=== PATIENT | male | born 1985 | race Caucasian/White ===

== ENCOUNTER 2018-03-07 17:00 | Emergency (ER) | payer SELFPAY ==
[2018-03-07 17:04] VITALS: BMI 37.6
[2018-03-07] MEDS ORDERED: ZOFRAN INJ 4 MG VIAL IVP ONE (17:21)
[2018-03-07] MEDS ORDERED: ZOFRAN INJ 4 MG VIAL ONE (17:22)
[2018-03-07] MEDS ORDERED: NS 1000 ML 1,000 ML ONE (17:23)
[2018-03-07] MEDS ORDERED: NS 1000 ML 1,000 ML IV ONE (17:27)
--- NOTE | 2018-03-07 17:33 | DR.GENAD ---
HPI - PCP Primary Care Physician: NFD - Complaint/Symptoms Chief Complaint:: PT. C/O LEFT FLANK PAIN AND SEVERE VOMITING. - Nurses notes reviewed Nurses Notes Review: Yes - Source History Provided: Patient - Mode of Arrival Mode of Arrival: Ambulatory - Timing Onset of Chief Complaint: 03/07/18 PMH - PMH Past Medical History: Yes Past Medical History: Kidney Stones Past Surgical History: No Surgical History: No History - Family History History of Family Medical Conditions: Yes Family Medical History: Heart Failure - Social History Does patient currently use any type of tobacco product: Yes Have you used tobacco products in the last 12 months: Yes Type of Tobacco Use: Cigarettes Does any household member use tobacco: Yes Alcohol Use: Occasionally Do you use any recreational Drugs:: No Lives With: Significant Other Lives Where: Home - infectious screening In the last 2 months have you had wt loss of >10#?: NO Have you had fever, night sweats or hemotysis?: No Have you traveled outside the country in the last 6 months?: No Isolation: Standard ROS - Review of Systems Constitutional: No Symptoms Reported Eyes: No Symptoms Reported ENTM: No Symptoms Reported Respiratoy: No Symptoms Reported Cardiovascular: No Symptoms Reported Gastrointestinal/Abdominal: Nausea, Vomiting Genitourinary: Other (lt.flank pain) Neurological: No Symptoms Reported Musculoskeletal: No Symptoms Reported Integumentary: No Symptoms Reported Hematologic/Lymphatic: No Symptoms Reported Endocrine: No Symptoms Reported Psychiatric: No Symptoms Reported PE - Vital Signs Vitals: Temperature 97.2 F Pulse Rate [Apical] 48 Pulse Rate 44 Respiratory Rate 13 Blood Pressure [Right Arm] 119/68 Blood Pressure [Left Arm] 178/92 Blood Pressure 163/83 O2 Sat by Pulse Oximetry 96 - General Limitations: No Limitations General Appearance: Alert, In Distress (pain related) - Head Head Exam: Normal Inspection - Eyes Eye exam: Normal Appearance - ENT ENT Exam: Normal Exam - Neck Neck Exam: Normal Inspection - Chest Chest Inspection: Normal Inspection - Respiratory Respiratory Exam: Normal Lung Sounds Bilat - Cardiovascular Cardiovascular Exam: Regular Rate, Bradycardia, +S1, +S2 - Extremities Extremities Exam: Normal Inspection - Back Back Exam: Normal Inspection - Neurologic Neurological Exam: Alert, Oriented X3 - Psychiatric Psychiatric Exam: Normal Affect, Normal Mood - Skin Skin Exam: Dry, Intact, Diaphoresis ROR - Labs Reviewed Result Diagrams: 03/07/18 17:10 03/07/18 17:10 Laboratory: WBC 16.5 X10^3/uL (3.6-10.0) H 03/07/18 17:10 RBC 5.05 X10^6/uL (4.7-6.0) 03/07/18 17:10 Hgb 15.5 g/dL (13.5-18.0) 03/07/18 17:10 Hct 45.8 % (42.0-54.0) 03/07/18 17:10 MCV 90.7 fL (80.0-100.0) 03/07/18 17:10 MCH 30.8 pg (27.0-34.0) 03/07/18 17:10 MCHC 33.9 g/dL (33.0-35.0) 03/07/18 17:10 RDW 13.3 % (11.6-16.5) 03/07/18 17:10 Plt Count 269 X10^3/uL (150.0-450.0) 03/07/18 17:10 MPV 8.4 fL (7.4-11.0) 03/07/18 17:10 Neut % (Auto) 89.0 % (42.0-75.0) H 03/07/18 17:10 Lymph % (Auto) 7.1 % (21.0-51.0) L 03/07/18 17:10 [place] % (Auto) 3.0 % (0.0-13.0) 03/07/18 17:10 Eos % (Auto) 0.5 % (0.9-2.9) L 03/07/18 17:10 Baso % (Auto) 0.4 % (0.2-1.0) 03/07/18 17:10 Neut # (Auto) 14.7 x10^3/uL (2.2-4.8) H 03/07/18 17:10 Lymph # (Auto) 1.2 X10^3/uL (1.3-2.9) L 03/07/18 17:10 [place]rell # (Auto) 0.5 x10^3/uL (0.3-0.8) 03/07/18 17:10 Eos # (Auto) 0.1 x10^3/uL (0.0-0.2) 03/07/18 17:10 Baso # (Auto) 0.1 X10^3/uL (0.0-0.1) 03/07/18 17:10 Absolute Nucleated RBC 0.0 /100WBC 03/07/18 17:10 Sodium 141 mmol/L (136-145) 03/07/18 17:10 Corrected Sodium 142 mmol/L (136-145) 03/07/18 17:10 Potassium 3.9 mmol/L (3.5-5.1) 03/07/18 17:10 Chloride 107 mmol/L (98-107) 03/07/18 17:10 Carbon Dioxide 28.8 mmol/L (21-32) 03/07/18 17:10 BUN 15 mg/dL (7-18) 03/07/18 17:10 Creatinine 1.09 mg/dL (0.70-1.30) 03/07/18 17:10 Est GFR (MDRD) Af Amer > 60 (>60) 03/07/18 17:10 Est GFR (MDRD) Non-Af > 60 (>60) 03/07/18 17:10 Glucose 143 mg/dL (65-99) H 03/07/18 17:10 Calcium 9.4 mg/dL (8.5-10.1) 03/07/18 17:10 Corrected Calcium TNP 03/07/18 17:10 Total Bilirubin 0.50 mg/dL (0.2-1.0) 03/07/18 17:10 AST 42 Units/L (15-37) H 03/07/18 17:10 ALT 74 Units/L (12-78) 03/07/18 17:10 Alkaline Phosphatase 89 Units/L (46-116) 03/07/18 17:10 Total Protein 8.3 g/dL (6.4-8.2) H 03/07/18 17:10 Albumin 3.4 g/dL (3.4-5.0) 03/07/18 17:10 Globulin 4.9 g/dL (2.5-4.5) H 03/07/18 17:10 Albumin/Globulin Ratio 0.7 Ratio (1.1-2.1) L 03/07/18 17:10 Amylase 65 Units/L (25-115) 03/07/18 17:10 Lipase 128 Units/L (73-393) 03/07/18 17:10 Specimen Type Random urine 03/07/18 17:32 Urine Color Yellow (YELLOW) 03/07/18 17:32 Urine Appearance Cloudy (CLEAR) 03/07/18 17:32 Urine pH 6.5 (5.0 - 8.0) 03/07/18 17:32 Ur Specific [place] 1.015 (1.000-1.030) 03/07/18 17:32 Urine Protein 2+ (NEGATIVE) 03/07/18 17:32 Urine Glucose (UA) Negative (NEGATIVE) 03/07/18 17:32 Urine Ketones 1+ (NEGATIVE) 03/07/18 17:32 Urine Occult Blood 5+ (NEGATIVE) 03/07/18 17:32 Urine Nitrite Negative (NEGATIVE) 03/07/18 17:32 Urine Bilirubin Negative (NEGATIVE) 03/07/18 17:32 Urine Urobilinogen Normal (NORMAL) 03/07/18 17:32 Ur Leukocyte Esterase 2+ (NEGATIVE) 03/07/18 17:32 Urine RBC Tntc /HPF (NONE SEEN) 03/07/18 17:32 Urine WBC 3-5 /HPF (NONE SEEN) 03/07/18 17:32 Ur Squamous Epith Cells Rare /HPF (NEGATIVE) 03/07/18 17:32 Amorphous Sediment 1+ /HPF (NEGATIVE) 03/07/18 17:32 Urine Bacteria Negative /HPF (NEGATIVE) 03/07/18 17:32 Ur Culture Indicated? No/not indicated 03/07/18 17:32 - XRAY XRAY Interpreted by: Radiologist (A 1.2 cm distal left ureteral stone with associated mild to moderate hydronephrosis. multiple b/i renal stones present, these findings date back to May 2017. Diverticulosis without diverticulitis, stable hepatomegaly.) - EKG Rate: 42 [place]: Normal Rhythm: NSR Block: None Hypertrophy: None ST: Normal - Diagnosis Discharge Problem: Renal colic on left side, Nephroureterolithiasis - Discharge Plan Disposition: 01 HOME, SELF-CARE Condition: Stable - Follow ups/Referrals Follow ups/Referrals: NFD,None [Primary Care Provider] - 3 days - Instructions Instructions: Renal Colic, [id number], Kidney Stones, [id number]
[2018-03-07 17:42] LABS: BASOPHILS # (AUTO) 0.1 X10^3/uL (0.0-0.1); BASOPHILS % (AUTO) 0.4 % (0.2-1.0); EOSINOPHILS # (AUTO) 0.1 x10^3/uL (0.0-0.2); EOSINOPHILS % (AUTO) 0.5 % (0.9-2.9); HEMATOCRIT 45.8 % (42.0-54.0); HEMOGLOBIN 15.5 g/dL (13.5-18.0); LYMPHOCYTES # (AUTO) 1.2 X10^3/uL (1.3-2.9); LYMPHOCYTES % (AUTO) 7.1 % (21.0-51.0); MEAN CORPUSCULAR HEMOGLOBIN 30.8 pg (27.0-34.0); MEAN CORPUSCULAR HGB CONC 33.9 g/dL (33.0-35.0); MEAN CORPUSCULAR VOLUME 90.7 fL (80.0-100.0); MEAN PLATELET VOLUME 8.4 fL (7.4-11.0); MONOCYTES # (AUTO) 0.5 x10^3/uL (0.3-0.8); NEUTROPHILS # (AUTO) 14.7 x10^3/uL (2.2-4.8); PLATELET COUNT 269 X10^3/uL (150.0-450.0); RED BLOOD COUNT 5.05 X10^6/uL (4.7-6.0); RED CELL DISTRIBUTION WIDTH 13.3 % (11.6-16.5); WHITE BLOOD COUNT 16.5 X10^3/uL (3.6-10.0)
[2018-03-07] MEDS ORDERED: DILAUDID INJ IVP ONE (17:42)
[2018-03-07] MEDS ORDERED: DILAUDID INJ ONE (17:42)
[2018-03-07 17:52] LABS: BILIRUBIN,URINE NEGATIVE (NEGATIVE); BLOOD/HEMOGLOBIN,URINE 5+ (NEGATIVE); GLUCOSE, URINE NEGATIVE (NEGATIVE); KETONES,URINE 1+ (NEGATIVE); LEUKOCYTE ESTERASE ,URINE 2+ (NEGATIVE); NITRITES,URINE NEGATIVE (NEGATIVE); PH,URINE 6.5 (5.0 - 8.0); PROTEIN,URINE 2+ (NEGATIVE); UROBILINOGEN,URINE NORMAL (NORMAL)
[2018-03-07 17:53] LABS: ALANINE AMINOTRANSFERASE 74 Units/L (12-78); ALBUMIN 3.4 g/dL (3.4-5.0); ALKALINE PHOSPHATASE 89 Units/L (46-116); AMYLASE 65 Units/L (25-115); BLOOD UREA NITROGEN 15 mg/dL (7-18); CALCIUM 9.4 mg/dL (8.5-10.1); CARBON DIOXIDE 28.8 mmol/L (21-32); CHLORIDE 107 mmol/L (98-107); COR NA(FOR HYPERGLY) 142 mmol/L (136-145); CREATININE 1.09 mg/dL (0.70-1.30); LIPASE 128 Units/L (73-393); SODIUM 141 mmol/L (136-145); TOTAL PROTEIN 8.3 g/dL (6.4-8.2); eGFR BLACK RACES > 60 (>60); eGFR NON BLACK RACES > 60 (>60)
[2018-03-07 17:59] LABS: APPEARANCE,URINE CLOUDY (CLEAR); COLOR,URINE YELLOW (YELLOW)
[2018-03-07 18:01] LABS: ASPARTATE AMINO TRANSFERASE 42 Units/L (15-37)
[2018-03-07 18:09] LABS: RBC,URINE TNTC /HPF (NONE SEEN)
[2018-03-07 18:10] LABS: AMORPHOUS SEDIMENT,UR 1+ /HPF (NEGATIVE); BACTERIA,URINE NEGATIVE /HPF (NEGATIVE); SQUAMOUS EPITHELIAL CELL,UR RARE /HPF (NEGATIVE)
--- NOTE | 2018-03-07 18:16 | CT ---
CT ABDOMEN AND PELVIS WITHOUT CONTRAST CLINICAL HISTORY: 33-year-old male with severe left flank pain and vomiting. COMPARISON: CT abdomen pelvis 06/11/2016. TECHNIQUE: Multiple contiguous computed tomographic axial images of the abdomen and pelvis were obtai brian without the use of oral or intravenous contrast. Images were reformatted in the coronal and sagit oumar planes. FINDINGS: Study is limited secondary to patient motion. The lung bases demonstrate no evidence of focal air-space opacification, pleural effusion, pneumothor ax, or suspicious pulmonary nodules. The imaged inferior mediastinum and heart are normal in appeara nce without evidence of pericardial effusion. Unchanged hepatomegaly without focal mass lesion or biliary ductal dilatation. Spleen, pancreas and g allbladder are unremarkable. Adrenal glands unremarkable. Nonobstructing right renal pelvic stone within the lower pole measuring 7 mm. Stable appearance of mu ltiple left renal parenchymal and pelvic stones, the largest within the renal pelvis measuring 2.6 cm . Re-demonstration of distal left ureteral stone measuring approximately 1.2 cm with resultant mild t o moderate hydroureteronephrosis. Unchanged hyperdense cyst left kidney. No perinephric fluid collect ion. Ureters follow a normal course to a minimally distended urinary bladder. Multiple pelvic phleboliths are present. The prostate, seminal vesicles, and external genitalia are within normal limits. The appendix is normal in appearance. The bowel is without obstruction or inflammation and there is no free fluid or free air within the peritoneal cavity. Diverticulosis without CT evidence of diverti culitis. There are no pathologically enlarged lymph nodes in the abdomen or pelvis. The arteriovascular structures are within normal limits for a study without contrast. Unchanged fat containing umbilical hernia. The osseous structures are intact without fracture or malalignment. IMPRESSION: 1. Re-demonstration of distal left ureteral stone measuring approximately 1.2 cm with associated mild to moderate hydroureteronephrosis. 2. Multiple bilateral renal stones as described above, not simply changed as compared to prior examin ation. 3. Diverticulosis without CT evidence of diverticulitis. 4. Hepatomegaly, stable, correlate with serology. Reported By:
[2018-03-07 18:22] VITALS: BP 178/92
[2018-03-07] MEDS ORDERED: TORADOL 30 MG VIAL IVP ONE (18:48)
[2018-03-07] MEDS ORDERED: COMPAZINE INJ IVP ONE (18:48)
[2018-03-07] MEDS ORDERED: TORADOL 30 MG VIAL ONE (18:51)
[2018-03-07] MEDS ORDERED: COMPAZINE INJ ONE (18:51)
== END 2018-03-07 20:10 | disposition home or self-care (01) ==
LOC: ER 17:22
DX: N23 Unspecified renal colic (principal); N20.1 Calculus of ureter
CPT/HCPCS: 36415; 74176; 80053; 81001; 82150; 83690; 85025; 93005; 93010; 96365; 96374; 96375; 99282; 99283; A4222; J0780; J1170; J1885; J2405